=== PATIENT | female | born 2000 | race American Indian/Alaskan Native ===

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

== ENCOUNTER 2021-08-06 14:25 | Emergency (ER) | payer OTHER ==
[2021-08-06 14:53] VITALS: BP 109/69; PULSE 76; TEMP 98; BMI 26.3
[2021-08-06] MEDS ORDERED: SODIUM CHLORIDE 1,000 ML IV STA (16:40)
[2021-08-06] MEDS ORDERED: FAMOTIDINE 20 MG/50 ML IVPB 20 MG/50 ML MG IVPB ONE ×3 (16:42→16:43)
[2021-08-06] MEDS ORDERED: MAG HYDROX/AL HYDROX/SIMETH 30 ML UNIT-DOSE CUP PO ONE (16:42)
[2021-08-06] MEDS ORDERED: MAG HYDROX/AL HYDROX/SIMETH 30 ML UNIT-DOSE CUP ONE (16:43)
[2021-08-06 17:11] LABS: EPI CELLS 14 /uL (0-25.1); HYALINE CASTS 0 /uL (0-3.1); PH,URINE 7.5 (5.0-8.0); URINE APPEARANCE CLEAR; URINE BACTERIA 1104 /uL (0-1359); URINE BILIRUBIN NEGATIVE (NEGATIVE); URINE COLOR YELLOW; URINE GLUCOSE (UA) NEGATIVE (NEGATIVE); URINE KETONE NEGATIVE (NEGATIVE); URINE LEUK ESTERASE TRACE (NEGATIVE); URINE NITRITE NEGATIVE (NEGATIVE); URINE PROTEIN NEGATIVE (NEGATIVE); URINE RBC 2 /uL (0-23.9); URINE UROBILINOGEN 0.2 mg/dL (0.2-1.0); URINE WBC 33 /uL (0-25.8)
[2021-08-06 17:12] LABS: HCG,QUALITATIVE URINE Negative
[2021-08-06 17:26] LABS: CHLORIDE 105 mmol/L (98-107); SODIUM 135 mmol/L (136-145)
[2021-08-06 17:28] LABS: ALBUMIN 4.7 g/dl (3.4-5.0); BLOOD UREA NITROGEN 7.8 mg/dL (7-18); CALCIUM 9.6 mg/dL (8.5-10.1); CO2 26 mmol/L (21-32); GLUCOSE,RANDOM 90 mg/dL (74-106); MAGNESIUM 2.2 mg/dL (1.8-2.4)
[2021-08-06 17:30] LABS: EOS % 0.3 % (0-4.5); HEMATOCRIT 27.9 % (32.4-45.2); HEMOGLOBIN 9.3 GM/dL (10.7-15.3); LYMPH % 20.1 % (8-40); MCH 23.2 pg (25.7-33.7); MCHC 33.3 g/dl (32.0-36.0); MEAN CELL VOLUME 69.7 fl (80-96); MEAN PLT VOLUME 8.2 fl (7.5-11.1); MONO % 3.5 % (3.8-10.2); NEUT % 75.1 % (42.8-82.8); PLATELET COUNT 285 10^3/uL (134-434); RDW 18.3 % (11.6-15.6); WHITE BLOOD COUNT 6.8 K/mm3 (4.0-10.0)
[2021-08-06 17:31] LABS: CREATININE 0.6 mg/dL (0.55-1.3); SGPT/ALT 27 U/L (13-61)
[2021-08-06 17:32] LABS: SGOT/AST 110 U/L (15-37)
[2021-08-06 17:33] LABS: TOT PROT 8.4 g/dl (6.4-8.2)
[2021-08-06 17:34] LABS: ALK PHOS 99 U/L (45-117)
[2021-08-06 17:37] LABS: ANION GAP 4 MMOL/L (8-16)
[2021-08-06 17:46] LABS: LIPASE 77 U/L (73-393)
[2021-08-06 18:54] LABS: BLOOD UREA NITROGEN 7.8 mg/dL (7-18); CALCIUM 8.5 mg/dL (8.5-10.1)
[2021-08-06 18:57] LABS: CREATININE 0.5 mg/dL (0.55-1.3)
[2021-08-06 18:59] LABS: BILIRUBIN,TOTAL 0.8 mg/dL (0.2-1)
== END 2021-08-06 20:08 | disposition home or self-care (01) ==
LOC: JER 14:25
PROC: 3E033GC Introduction of Other Therapeutic Substance into Peripheral Vein, Percutaneous Approach (ICD-10-PCS; principal; 2021-08-06)
PROC: 3E0337Z Introduction of Electrolytic and Water Balance Substance into Peripheral Vein, Percutaneous Approach (ICD-10-PCS; 2021-08-06)
DX: K21.9 Gastro-esophageal reflux disease without esophagitis (principal)
CPT/HCPCS: 36415; 80053; 81003; 83690; 83735; 84703; 85025; 96374; 96375; 99284-25

== ENCOUNTER 2023-10-05 04:15 | Inpatient (IN) | payer OTHER ==
[2023-10-05] MEDS: ELECTROLYTE-148 SOLN 1,000 ML IV SCH (05:30)
[2023-10-05 05:35] VITALS: BMI 30.1
[2023-10-05 06:36] LABS: POTASSIUM 4.6 mmol/L (3.5-5.1)
[2023-10-05 06:38] LABS: CALCIUM 9.4 mg/dL (8.5-10.1)
[2023-10-05 06:39] LABS: BLOOD UREA NITROGEN 5.4 mg/dL (7-18)
[2023-10-05 06:42] LABS: CREATININE 0.4 mg/dL (0.55-1.3)
[2023-10-05 06:43] LABS: INR 0.87 (0.83-1.09); PROTHROMBIN TIME (PATIENT) 9.9 SEC (9.7-13.0)
[2023-10-05 06:46] LABS: ACTIVATED PTT 28.6 SECONDS (25.2-36.5)
[2023-10-05 06:48] LABS: BASO % 0.7 % (0-2.0); EOS % 1.3 % (0-4.5); HEMATOCRIT 38.9 % (32.4-45.2); HEMOGLOBIN 13.7 GM/dL (10.7-15.3); LYMPH % 27.4 % (8-40); MCH 29.2 pg (25.7-33.7); MCHC 35.2 g/dl (32.0-36.0); MEAN CELL VOLUME 83.1 fl (80-96); MEAN PLT VOLUME 8.9 fl (7.5-11.1); MONO % 6.3 % (3.8-10.2); NEUT % 64.3 % (42.8-82.8); PLATELET COUNT 162 10^3/uL (134-434); RBC 4.68 M/mm3 (3.60-5.2); RDW 16.2 % (11.6-15.6); WHITE BLOOD COUNT 9.3 K/mm3 (4.0-10.0)
[2023-10-05] MEDS ORDERED: OXYTOCIN 20 UNITS in 0.9% NS 20 UNIT/1,000 ML INFUS.BAG IV ONE ×2 (08:30→16:23)
[2023-10-05] MEDS: OXYTOCIN 30 UNITS in 0.9% NS 30 UNIT/500 ML INFUS.BAG IVPB SCH (08:35)
[2023-10-05] MEDS ORDERED: FENTANYL/BUPIVACAINE/NS/PF - PCEA - 50 ML DISP.SYRIN EP ONE ×2 (10:21→14:51)
[2023-10-05] MEDS ORDERED: NALOXONE HCL 0.4 MG/ML VIAL IVPUSH PRN (10:33)
[2023-10-05] MEDS ORDERED: BUPIVACAINE HCL/PF 0.25% (2.5MG/ML) 10 ML VIAL ONE (10:34)
[2023-10-05] MEDS: FENTANYL/BUPIVACAINE/NS/PF - PCEA - 50 ML DISP.SYRIN EP SCH (10:50)
[2023-10-05] MEDS ORDERED: LIDOCAINE HCL 1% PRESERVATIVE FREE - 30ML VIAL ONE (16:23)
[2023-10-05] MEDS ORDERED: WITCH HAZEL 50% (TUCKS) 40 PAD/JAR PAD TP PRN (16:53)
[2023-10-05] MEDS ORDERED: METHYLERGONOVINE MALEATE 0.2 MG/1 ML AMP IM PRN (16:53)
[2023-10-05] MEDS ORDERED: BENZOCAINE 28 GM HEMORRHOIDAL OINTMENT TP PRN (16:53)
[2023-10-05] MEDS ORDERED: BENZOCAINE 20% 57 GM BOTTLE TP PRN (16:53)
[2023-10-05] MEDS ORDERED: oxyCODONE HCL 5 MG TABLET PO PRN (16:53)
[2023-10-05] MEDS ORDERED: ACETAMINOPHEN 325 MG TABLET (FP) PO PRN (16:53)
[2023-10-05] MEDS ORDERED: BISACODYL 10 MG SUPP.RECT RC PRN (16:53)
[2023-10-05] MEDS: OXYTOCIN 20 UNITS in 0.9% NS 20 UNIT/1,000 ML INFUS.BAG IV SCH (17:15)
[2023-10-05 18:17] LABS: CORD HCO3 19.5 mmHg (20-29); CORD PCO2 42.7 mmHg (30-78); CORD pH 7.278 (7.14-7.44)
[2023-10-06] MEDS: IBUPROFEN 600 MG TABLET (FP) PO PRN (02:13)
[2023-10-06 07:02] LABS: BASO % 0.4 % (0-2.0); EOS % 0.7 % (0-4.5); HEMATOCRIT 34.2 % (32.4-45.2); HEMOGLOBIN 11.9 GM/dL (10.7-15.3); LYMPH % 20.1 % (8-40); MCH 29.1 pg (25.7-33.7); MCHC 34.8 g/dl (32.0-36.0); MEAN CELL VOLUME 83.8 fl (80-96); MEAN PLT VOLUME 8.8 fl (7.5-11.1); MONO % 6.9 % (3.8-10.2); NEUT % 71.9 % (42.8-82.8); PLATELET COUNT 150 10^3/uL (134-434); RBC 4.08 M/mm3 (3.60-5.2); WHITE BLOOD COUNT 13.9 K/mm3 (4.0-10.0)
[2023-10-06 21:53] VITALS: RESP 18
[2023-10-06] MEDS ORDERED: SENNOSIDES/DOCUSATE COMBO (SENNA PLUS) TABLET (UD) PO PRN (22:00)
[2023-10-07 08:57] VITALS: BP 116/70; PULSE 75; TEMP 98
== END 2023-10-07 12:45 | disposition home or self-care (01) | DRG 560 ==
LOC: JLDR 04:15 → J3W 20:23
PROVIDERS: ADMIT Obstetrics & Gynecology; ATTEND Obstetrics & Gynecology
PROC: 10E0XZZ Delivery of Products of Conception, External Approach (ICD-10-PCS; principal; 2023-10-05)
PROC: 0HQ9XZZ Repair Perineum Skin, External Approach (ICD-10-PCS; 2023-10-05)
DX: O42.02 Full-term premature rupture of membranes, onset of labor within 24 hours of rupture (principal); O70.0 First degree perineal laceration during delivery; O77.0 Labor and delivery complicated by meconium in amniotic fluid; O69.81X0 Labor and delivery complicated by cord around neck, without compression, not applicable or unspecified; Z3A.00 Weeks of gestation of pregnancy not specified; Z37.0 Single live birth
CPT/HCPCS: 36415; 36600; 80048; 82803; 85025; 85610; 85730; 86780; 86850; 86900; 86901